=== PATIENT | male | born 1970 | race Two or more races ===

== ENCOUNTER 2018-03-31 02:36 | Emergency (ER) | payer BC ==
[2018-03-31 03:00] VITALS: BP 127/80
[2018-03-31] MEDS ORDERED: CETIRIZINE 10 MG TABLET PO ONE (03:32)
[2018-03-31] MEDS ORDERED: IBUPROFEN 800 MG TABLET PO ONE (03:33)
[2018-03-31] MEDS ORDERED: LIDOCAINE 2% INJ-PF (20 MG/ML) 10 ML AMPUL NEB ONE (03:33)
--- NOTE | 2018-03-31 03:38 | ER Document Report ---
HPI - HPI Patient complains to provider of: Cough and congestion Time Seen by Provider: 03/31/18 03:14 Pain Level: 5 Context: Patient is a 47-year-old male presenting to the emergency department complaining of cough and congestion for the last month. Patient states he feels as though the cough and congestion has gotten worse in the last couple of days due to being at a friend's house who has a cat and also smokes cigarettes. Patient states he used Flonase yesterday which he states thinks helped a little bit. Patient States He Used To Take Zyrtec for His Allergy but He Has Not since Started Taking It Again. Patient states he thinks his nasal congestion is going down the back of his throat and irritating has acid reflux. States he has taken Pepcid for that and that has helped. Patient admits to generalized chills, denies taking his temperature. Patient denies chest pain or shortness of breath. Patient states he has a generalized headache which increases when he coughs. Patient has not taken anything [id number] besides the Flonase for his symptoms. Past medical history: GERD Medications: Pepcid Allergies: None Surgical history: None Patient denies cigarette smoking, denies illicit drug use, denies EtOH use. Past Medical History - General Information source: Patient - Social History Smoking Status: Never Smoker Frequency of alcohol use: None Drug Abuse: None Lives with: Alone Family History: Reviewed & Not Pertinent Vertical Provider Document - CONSTITUTIONAL Agree With Documented VS: Yes Notes: GENERAL: Alert, interacts well. No acute distress. HEAD: Normocephalic, atraumatic. Generalized frontal sinus tenderness upon palpation, no maxillary sinus tenderness. EYES: Pupils equal, round, and reactive to light. Extraocular movements intact. ENT: Oral mucosa moist, tongue midline. Nares patent, swollen turbinates bilaterally, TM's intact, nonerythematous, nonbulging. Pharynx within normal limits, no palatal petechiae or exudate noted. NECK: Full range of motion. Supple. Trachea midline. No lymphadenopathy appreciated LUNGS: Clear to auscultation bilaterally, no wheezes, rales, or rhonchi. No respiratory distress. HEART: Tachycardic rate and rhythm. No murmur ABDOMEN: Soft, non-tender. Non-distended. Bowel sounds present in all 4 quadrants. EXTREMITIES: Moves all 4 extremities spontaneously. No edema, normal radial and dorsalis pedis pulses bilaterally. No cyanosis. BACK: no cervical, thoracic, lumbar midline tenderness. No saddle anesthesia, normal distal neurovascular exam. NEUROLOGICAL: Alert and oriented x3. Normal speech. cranial nerves II through XII grossly intact. PSYCH: Normal affect, normal mood. SKIN: Warm, dry, normal turgor. No rashes or lesions noted. Course - Re-evaluation Re-evalutation: 03/31/18 04:06 Patient states after nebulized lidocaine in the emergency room he feels a lot better. Patient also states Motrin helped his generalized headache. Discussed with him diagnosis of sinusitis need for antibiotics at this time. Also discussed taking Zyrtec and continue use of Flonase. Patient is no longer tachycardic in the emergency room. States he generally feels better at this time. Discussed follow-up with primary care provider and close return precautions. - Vital Signs Vital signs: Temp Pulse Resp BP Pulse Ox 98.8 F 109 H 18 127/80 H 94 03/31/18 02:59 03/31/18 02:59 03/31/18 02:59 03/31/18 02:59 03/31/18 02:59 Discharge - Discharge Clinical Impression: Sinusitis Qualifiers: Sinusitis location: frontal Chronicity: acute Recurrence: non-recurrent Qualified Code(s): J01.10 - Acute frontal sinusitis, unspecified Condition: Stable Disposition: HOME, SELF-CARE Instructions: Sinusitis ([facility]) Prescriptions: Benzonatate [Tessalon Perles 100 mg Capsule] 100 mg PO Q8HP PRN #40 capsule PRN Reason: Amox Tr/Potassium Clavulanate [Augmentin 875-125 mg Tablet] 1 tab PO BID #20 tablet Cetirizine HCl [Zyrtec 10 mg Tablet] 1 tab PO DAILY #30 tablet
== END 2018-03-31 04:45 | disposition home or self-care (01) ==
LOC: ER 02:36
DX: J01.00 Acute maxillary sinusitis, unspecified (principal); R05 Cough; R68.83 Chills (without fever); R51 Headache; K21.9 Gastro-esophageal reflux disease without esophagitis; Z79.899 Other long term (current) drug therapy; Z77.22 Contact with and (suspected) exposure to environmental tobacco smoke (acute) (chronic)
CPT/HCPCS: 94640; 99283; J3490